=== PATIENT | female | born 1985 | race Caucasian/White ===

== ENCOUNTER → 2017-07-01 10:12 | Outpatient (CLI) | payer BC, SELFPAY ==
[2017-07-01 11:49] LABS: Hemoglobin 11.3 g/dl (12.0-15.0); Mean Corp Hgb Conc 34.2 g/gl (32-36); Mean Corpuscular Hgb 32.1 pg (27.0-32.0); Mean Corpuscular Volume 93.8 fL (81-99); Mean Platelet Vol. 9.9 fl (6.2-12.0); Platelet Count 250 K/mm3 (150-450); RBC Distribution Width CV 12.2 % (11.6-14.6); RBC Distribution Width SD 40.5 fl (35.1-43.9); Red Blood Count 3.52 M/mm3 (4.2-5.4); White Blood Count 9.2 K/mm3 (4.4-11.0)
[2017-07-01 11:50] LABS: Glucose Challenge Gest 1H 50g 100 mg/dL (70-140); Scan Indicated on CBC? Y/N NO
== END ==
PROVIDERS: Visit Provider Obstetrics & Gynecology
DX: Z34.82 Encounter for supervision of other normal pregnancy, second trimester (principal)
CPT/HCPCS: 36415; 82950; 85027; 86850

== ENCOUNTER 2017-07-22 18:21 | Emergency (ER) | payer BC, SELFPAY ==
[2017-07-22 18:22] VITALS: BP 117/67; PULSE 78; RESP 14; TEMP 36.7; O2SAT 98; BMI 28.0
[2017-07-22 19:00] LABS: Bacteria 0 SEEN /hpf (None Seen); Mucous, Urine 0 SEEN /hpf (<or=2+); Red Blood Cells-Urine 0 SEEN /hpf (0-5)
[2017-07-22 19:13] LABS: Color, Urine Straw (Yellow); Glucose, Dipstick Normal (Normal); Ketone-Dipstick Negative (Negative); Leukocyte Esterase-Dipstick 500 /ul (Negative); Nitrite-Dipstick Negative (Negative); Occult Blood-Urine Negative /ul (Negative); Protein-Dipstick Negative (Negative); Specific Gravity, Urine 1.005 (1.002-1.030); Urine Bilirubin Dipstick Negative (Negative); Urine Clarity Clear (Clear); Urine Urobilinogen Normal (Normal)
[2017-07-22 19:21] LABS: Squamous Epithelial Cells - UA 0-5 SEEN /hpf (5-10); White Blood Cells 10-25 SEEN /hpf (0-5)
--- NOTE | 2017-07-22 19:42 | ED.DCSUM_ITS ---
- ER Visit Summary Date of Service: 07/22/17 Chief Complaint: [Dysuria] History of Present Illness: The patient is a 32 F [presents to the emergency department complaint of dysuria that started this morning. Patient initially started with dysuria and then subsequently developed some discomfort in her right low back. Patient denies any fever. Patient denies vomiting. Patient is 30 weeks . Patient still feeling the baby move. She denies any vaginal bleeding. Patient denies any contractions.] Physical Examination: [HEENT-PERRLA, EOMI. Cranial nerves II through XII grossly intact. TMs clear. Mucous membranes moist. No adenopathy. Cardiovascular-regular rate and rhythm without murmur or ectopy Lungs-clear to auscultation, chest wall stable without crepitus or subcu emphysema Abdomen-normoactive bowel sounds, soft. Patient has some mild right lower quadrant tenderness to palpation as well as right CVA tenderness. There is no rebound, rigidity, or perineal signs. The abdomen is gravid. Extremities-intact ?4, normal range of motion, normal pulses, atraumatic] Test Results: [Urinalysis obtained showed 500 leukocyte esterase and 10-25 WBCs , no bacteria seen]. heart tones will be obtained. Emergency Department Course and Treatment: [Patient will start on Macrobid and a urine culture was ordered.] Treatment Plan: [Macrobid and Pyridium.] Disposition: [Discharged to home in stable condition.] Impression: [Urinary tract infection] This note was generated with [employer] dictation software. It may contain incorrect words, spelling, and punctuation that were not noted in review of the chart prior to signing ED Disposition - Plan for ED Patient: Chief Complaint: Flank Pain Referrals: Care Physician,No Primary [Primary Care Provider] -
--- NOTE | 2017-07-22 19:42 | ED.DEP ---
ED Disposition - Plan for ED Patient: Chief Complaint: Flank Pain Instructions: ED Kidney Infec Female Prescriptions: Nitrofurantoin Macrocrystals [Macrobid] 100 mg PO Q12 #14 cap Phenazopyridine HCl [Pyridium] 200 mg PO BID PRN PRN #10 tab PRN Reason: Pain Referrals: Care Physician,No Primary [Primary Care Provider] - Ann Maxwell MD [STAFF PHYSICIAN] - 3-5 Days
[2017-07-22] MEDS: Nitrofurantoin Macrocrystals 100 MG Capsule PO (20:01)
[2017-07-22 20:05] VITALS: BP 116/69; PULSE 74; PULSE 76; RESP 16; O2SAT 98
== END 2017-07-22 20:07 | disposition home or self-care (01) ==
LOC: ED 19:09
PROVIDERS: Emergency Provider Emergency Medicine
DX: O23.43 Unspecified infection of urinary tract in pregnancy, third trimester (principal); Z3A.30 30 weeks gestation of pregnancy
CPT/HCPCS: 81001; 87077; 87086; 87088; 87186; 99283

== ENCOUNTER 2017-09-22 00:23 | Inpatient (IN) | payer BC, SELFPAY ==
[2017-09-22] MEDS: Lactated Ringers 1,000 ML 50 ML IV (00:45)
[2017-09-22 01:00] LABS: Hematocrit 33.9 % (37-47); Hemoglobin 11.6 g/dl (12.0-15.0); Mean Corp Hgb Conc 34.2 g/gl (32-36); Mean Corpuscular Hgb 29.9 pg (27.0-32.0); Mean Corpuscular Volume 87.4 fL (81-99); Mean Platelet Vol. 9.6 fl (6.2-12.0); Platelet Count 264 K/mm3 (150-450); RBC Distribution Width CV 12.9 % (11.6-14.6); RBC Distribution Width SD 40.3 fl (35.1-43.9); Red Blood Count 3.88 M/mm3 (4.2-5.4); White Blood Count 12.7 K/mm3 (4.4-11.0)
[2017-09-22 01:01] LABS: Scan Indicated on CBC? Y/N NO
[2017-09-22 01:19] VITALS: BMI 29.3
[2017-09-22] MEDS: Oxytocin 30 units/NS 500 ml 30 UNITS/500 ML IV.SOLN 334 UNITS IV (01:51)
--- NOTE | 2017-09-22 02:10 | PCM.OB.VAG ---
Vaginal Delivery Maternal Presentation: Active Labor 39w4d ega in active labor Amniotic Membrane Rupture Type: Spontaneous Rupture of Membrane time: 0130 Amniotic Fluid Description: Clear Final RONNY: 09/25/17 Final RONNY Source: US <20 weeks Gestational age: 39 Weeks and 4 Days Date of Procedure: 09/22/17 Pre-Operative Diagnosis: Labor Post-Operative Diagnosis: same Surgery/ Procedure Performed: Spontaneous Vaginal Delivery Type of Anesthesia: None Description of Procedure: Admitted at 6 cm dilated and within one hour progressed to then pushed to deliver a live female without complication. Delivery was precipitous and attended by nursing staff. I delivered the placenta spontaneously intact with a centrally located 3VC. The uterus contracted well. Inspection revealed a small first degree posterior vaginal tear which was repaired with local lidocaine anesthesia and a single stitch of 2-0 Vicryl. Presentation: Vertex Placental Delivery Description: Spontaneous Placenta Disposition: [facility] Percentage of Placenta Abruption: 0 Cord Vessel Description: 3 Vessels Cord Entanglement: None Estimated Blood Loss: 200cc A gender: Female (1 minute): 8 (5 minute): 9 Episiotomy Description: None Laceration: Midline, Vaginal Extension/lac, 1st degree Medications given after delivery: IV Pitocin Complications: None
--- NOTE | 2017-09-22 02:17 | DCINST_ITS ---
Discharge Diet: No Restrictions Discharge Activity: Return to Normal Activity, May Drive, May Shower Return to work on:: 11/22/17 May shower in (days): 0 May resume sexual activity in: 4-6 weeks Call your doctor if your incision/area has: Sudden Increased Bleeding, Increased Pain/ Swelling, Foul Smelling Discharge Call your doctor if you observe: Fever of 101 or Higher, Inability to urinate, Inability to have a bowel movement, Using more than one pad per hour, Shortness of breath, Chest pain, Calf discomfort, Uncontrolled pain Cleanse incision/area with: Soap & Water Additional Instructions: If you experience any of the following, contact your healthcare provider. * Bleeding that soaks a pad every hour for 2 hours * Fever 100.4 or higher * Unrelieved incision or abdominal pain * Swelling, redness, discharge or bleeding from your incision or episiotomy site * Your incision begins to separate * Problems urinating (including inability to urinate or burning while urinating) . * Visual changes * Severe headache * Flu-like symptoms * Pain or redness in one of both of your breasts * Pain, warmth, tenderness or swelling in your legs, especially the calf area * Frequent nausea and vomiting * Symptoms of depression or anxiety If you experience any of the following, call 911 or go to the nearest Emergency Room. * Chest pain * Problems breathing * Seizure activity * Partial or complete paralysis of a body part, slurred speech, weakness or drooping of the face, or a sudden inability to walk or hold your balance Allergies/Adverse Reactions: Allergies No Known Allergies Allergy (Verified 09/22/17 01:20) Medications to take at Discharge Multi Tablet 1 dose PO DAILY 07/22/17 Ibuprofen 600 mg PO 4X/DAY #30 tab 09/22/17 Ranitidine [Zantac] 150 mg PO DAILY 09/22/17 The following prescriptions were given: Ibuprofen 600 mg PO 4X/DAY #30 tab Please Follow Up With: Ann Maxwell MD When: 6 weeks Primary Care Physician: Care Physician,No Primary [Primary Care Provider] - Test Results: Proposed Discharge Date: 09/24/17
[2017-09-22] MEDS: Oxytocin 30 units/NS 500 ml 30 UNITS/500 ML IV.SOLN 167 UNITS IV (02:21)
[2017-09-22] MEDS: Methylergonovine 0.2 MG/ML Ampul IM (03:11)
[2017-09-22 04:00] VITALS: BP 117/78; PULSE 73; RESP 16; TEMP 37.6; O2SAT 98
[2017-09-22] MEDS: Ibuprofen 600 MG Tablet PO ×3 (06:51→21:38)
[2017-09-22 08:35] VITALS: BP 104/54; PULSE 74; RESP 16; TEMP 36.8; O2SAT 98
[2017-09-22] MEDS: Famotidine 20 MG Tablet PO (09:53)
[2017-09-22 12:00] VITALS: BP 98/62; PULSE 69; RESP 18; TEMP 36.6; O2SAT 97
[2017-09-22] MEDS: Prenatal Vits Tablet 1 TABLET PO (13:07)
[2017-09-22 16:15] VITALS: BP 106/54; PULSE 67; TEMP 36.9; O2SAT 96
[2017-09-22 21:30] VITALS: BP 101/60; PULSE 81; RESP 16; TEMP 36.7; O2SAT 97
[2017-09-22 23:50] VITALS: BP 91/46; PULSE 67; RESP 18; TEMP 36.4; O2SAT 99
[2017-09-23 04:45] VITALS: BP 97/48; PULSE 77; RESP 18; TEMP 36.7; O2SAT 97
[2017-09-23 05:03] LABS: Hematocrit 30.4 % (37-47); Hemoglobin 10.1 g/dl (12.0-15.0); Mean Corp Hgb Conc 33.2 g/gl (32-36); Mean Corpuscular Hgb 29.7 pg (27.0-32.0); Mean Corpuscular Volume 89.4 fL (81-99); Mean Platelet Vol. 9.4 fl (6.2-12.0); Platelet Count 224 K/mm3 (150-450); RBC Distribution Width CV 13.3 % (11.6-14.6); RBC Distribution Width SD 41.5 fl (35.1-43.9); White Blood Count 9.9 K/mm3 (4.4-11.0)
[2017-09-23 05:04] LABS: Scan Indicated on CBC? Y/N NO
[2017-09-23] MEDS: Ibuprofen 600 MG Tablet PO ×2 (06:26→21:38)
--- NOTE | 2017-09-23 07:58 | PCM.PN.OB ---
Subjective: No issues overnight. She feels well. She is . Infant is latching well. Denies significant pain or heavy lochia. Objective: AVSS - Physical Exam General: Alert, Oriented x3, Cooperative, No apparent distress HEENT: Atraumatic Lungs: Clear to auscultation, Normal air movement Cardiovascular: Regular rate, Regular Rhythm Abdomen: Bowel Sounds Present, Non Tender, Non-Distended Extremities: No edema, No Calf Tenderness Neurological: Neuro grossly intact Psych/Mental Status: Normal Affect, Appropriate, Alert and oriented to time, place, person, mood and affect Vital Signs Temp Pulse Resp BP Pulse Ox 98.0 F 77 18 97/48 L 97 09/23/17 04:45 09/23/17 04:45 09/23/17 04:45 09/23/17 04:45 09/23/17 04:45 Oxygen Delivery Method Room Air Weight: 72.8 kg Body Mass Index (BMI) 29.3 Intake and Output for Last 24 Hours 09/21/17 09/22/17 09/23/17 23:59 23:59 23:59 Intake Total 947 / 947 Output Total 200 / 200 Balance 747 / 747 Laboratory Tests Past 24 Hrs 09/23/17 04:50 WBC 9.9 RBC 3.40 L Hgb 10.1 L Hct 30.4 L MCV 89.4 MCH 29.7 MCHC 33.2 RDW 13.3 RDW Differential 41.5 Plt Count 224 MPV 9.4 Medical Necessity - Tobacco Use Smoking Status: Former smoker Assessment/Plan 32yo PPD#1 s/p precipitous doing well. Rh negative, infant also Rh negative - no Rhogam inidicated Routine care Anticipate discharge tomorrow
[2017-09-23 08:00] VITALS: BP 91/50; PULSE 74; RESP 18; TEMP 36.9
--- NOTE | 2017-09-23 12:40 | CASEMGMT ---
Social Work Assessment Labor and Delivery Unit Date of Referral: 09/22/2017 Time of Referral: 1630 Referred By: verbal notification by nursing staff, Nadeem Yepez RN. Date of Intervention: 09/23/2017 Time of Intervention: 1240 Reason for Referral: Support and resources; being tested for Downs syndrome History obtained from: Medical record, patient/mother of baby (MOB) and father of baby (FOB). Household composition: MOB Lexus Frazier, FOB Jimbo Frazier and oldest child, Tacho Frazier. Selby, Joanna, will be living in this home as well. No reported or identified safety concerns in the home. Patient's parent/guardian status: MOB and FOB in fall but have been together for 12 years. MOB and FOB now share two children together. Tacho was born 07[birth year]17-2014 and Joanna on 09-22-17. No reported or identified safety concerns in relationship with FOB. Medical History: MOB is G2, P1 to 2 after delivering Joanna. MOB with care starting at 10 weeks gestation. Medical record indicates baby with bilateral ventriculomegaly with right side more prominent. Joanna born at 39 weeks, weighed 7 pounds 15 ounces, with Apgars of 8 and 9. Medical record indicated that medical and nursing staff observed features on baby warranting further testing, concern for trisomy 21/Downs syndrome indicated. Educational Status: MOB graduated high school and went to trade school. ANUSHA is able to read, write, and denies any learning comprehension issues. Financial Status: MOB works fulltime, Tuesday through Tuesday, in the office at [employer]. FOB works at [employer] from 1000am to 600pm. Supplies: MOB and FOB report to have needed supplies to care for baby, including car seat and safe sleep space. MOB plans to breast feed infant. Childcare/Caregiver(s): MOB while on maternity leave. MOBs mom helps out once a week with Tacho, Tacho will be going to preschool a couple of days next year. MOB uncertain as to what care needs for baby will be when MOB is ready to return to work. Transportation: No reported issues, both parents drive. Programs/Agencies Involved: Plan to use Dr. Peters for pediatric needs. No agency involvement at this time, family has not needed to use WIC or any other supportive services. At this time, MOB and FOB open to [facility] referral for early intervention. Children Services/Legal Issues: No reported issues or past involvement. Behavioral Health Issues: MOB denies any history of depression, anxiety, mood or anxiety disorder, no history of any suicidal thoughts, or harm to others. [facility] record indicates MOB with an Ovid depression screen of 0 during this . MOB denies any substance use or abuse, no tobacco use. MOB had negative drug screen on 03-03-17. Family/Social Stressors: MOB and FOB having adjustment issues, at this time baby Joanna has had bookwork sent to confirm any developmental issues for this baby. MOB and FOB both report concern that baby may have Downs syndrome. This is a shock to the parents, as parents has no knowledge of this prior to delivery. MOB and FOB now adjusting to this possibility, as well as worries about what the future may hold in every aspect of their lives. While alone, MOB also voiced some guilt that she is the one who was pushing for a second child, and while FOB agreed, the FOB was reportedly content with having one child. Support Systems: MOB reports to talk openly with FOB, as well as has support from MOBs mom and sister who are local. ASSESSMENT: Talked with MOB and FOB together, with young son Tacho in the room. FOB left with Tacho at one point so did have some alone time with MOB. Tacho was well behaved during this writers conversation with both parents. Both MOB and FOB talked about their feelings, thoughts, and some worries regarding the news of baby possibly having Downs syndrome or other developmental delay. MOB more talkative than FOB, but FOB gave input about own feelings, and also provided supportive comments to MOB, such as encouraging MOB to tell this telegraphic typewriter operator chief how MOB really feels. MOB more talkative, and FOB quiet appearing subdued though participating in conversation. Both MOB and FOB cried at times, appropriately when talking about thoughts and feelings. Parents seem to be having a fear of the unknown and to be grieving what had anticipated for their familys future. Normalized thoughts, feelings, emotions, and encouraged parents to be patient with themselves, taking time to adjust, not making big life changes (such as MOB talking about having to quit job), and continuing to be open with each other about how each is doing with this life altering news. MOB did express that does not yet feel a mccartney with baby, feeling as though baby is not mine, though MOB held baby the entirety of social work visit, holding baby, rocking baby, kissing babys head and talking gently to baby. MOB reports belieft that a mccartney will come, and does acknowledge that trying to adjust to new information being given. MOB reports receptivity to having referrals for early intervention for the baby, and open to information social work has to offer. Much supportive listening, reflection, normalization, validation, as well as touching on stages of grief provided to this family. PLAN: Follow up later today with some resources for this family. -JOHANA Garcia, BANKING AND FINANCE INSTRUCTOR
[2017-09-23] MEDS: Senna/Docusate Sodium 1 Tablet PO (13:17)
[2017-09-23] MEDS: Prenatal Vits Tablet 1 TABLET PO (13:17)
[2017-09-23 14:30] VITALS: BP 108/42; PULSE 82; RESP 24; TEMP 36.8
--- NOTE | 2017-09-23 15:30 | CASEMGMT ---
Social Work Labor and Delivery Unit Summary: Follow up to previous social work intervention today, providing patient/mother of baby (MOB) and family with some resources which may be helpful down the road. MOB, father of baby (FOB), older son Tacho, and MOBs mother in room when social insurance analyst returned to provide information. Assessment: Baby sleeping in the bedside crib when social insurance analyst entered the room. MOB in bed, and rest of family on couch or chairs in the room. MOB calm and smiling, affect constricted, though did start to cry when social insurance analyst offered resources, coping skills, and then a packet of information specific to Downs Syndrome. MOB denies any new questions or concerns at this point, and expressed appreciation for information provided today. Intervention: Provided [facility] Resource guide, a comprehensive guide to services in [facility]. Information on shaken baby/tips to soothe baby, safe sleeping, and Help Me Grow. Information on depression and anxiety/online resources/supports/tips on self-care. Packet of information on local Downs Syndrome Supports including the [place] [employer] Downs including a new parent resource booklet, National Downs Syndrome Society including information on what to expect/normalizing thoughts and feelings in adjustment period, and articles on other parents stories after finding out their children had Downs Syndrome. Downs Syndrome information placed in a manila envelope for MOB and FOB to look at when ready. Provided some coping handouts on ground exercises and calm breathing techniques so as to to help aide MOB being able to stay in the moment. Encouraged parents to remember that counseling can be a great tool to provide support and coping in times of stress and adjustment. Plan: MOB and baby to home when ready for discharge. [facility] referral being made. Resources given. MOB has this writers contact information should MOB think of questions after discharge. No other services requested or indicated. -JOHANA Garcia, REHAB DIRECTOR
[2017-09-23 19:50] VITALS: BP 113/53; PULSE 85; RESP 17; TEMP 36.8; O2SAT 99
[2017-09-24 01:35] VITALS: BP 105/54; PULSE 70; RESP 17; TEMP 37.2
--- NOTE | 2017-09-24 06:41 | PCM.PN.OB ---
Subjective: Yesterday more challenging with . Continues to work on feeding. Lexus indicates she is trying to come to terms with infant likely diagnosis of Down Syndrome. Otherwise physically doing well, denies heavy lochia. Objective: AVSS - Physical Exam General: Alert, Oriented x3, Cooperative, No apparent distress HEENT: Atraumatic Lungs: Normal air movement Cardiovascular: Regular rate, Regular Rhythm Abdomen: Soft, Non Tender, Non-Distended, - - Fundus firm and nontender Extremities: No edema, No Calf Tenderness Neurological: Neuro grossly intact Psych/Mental Status: Normal Affect, Appropriate, Alert and oriented to time, place, person, mood and affect Vital Signs Temp Pulse Resp BP Pulse Ox 98.9 F 70 17 105/54 L 99 09/24/17 01:35 09/24/17 01:35 09/24/17 01:35 09/24/17 01:35 09/23/17 19:50 Oxygen Delivery Method Room Air Weight: 72.8 kg Body Mass Index (BMI) 29.3 Intake and Output for Last 24 Hours 09/22/17 09/23/17 09/24/17 23:59 23:59 23:59 Intake Total 947 / 947 Output Total 200 / 200 Balance 747 / 747 Medical Necessity - Tobacco Use Smoking Status: Former smoker Assessment/Plan 32yo PPD#2 s/p precipitous doing well. Rh negative, infant also Rh negative - no Rhogam inidicated Infant with Down facies - genetic studies pending, f/u per Peds Routine care Anticipate discharge today, possible to hotel if phototherapy required
[2017-09-24 08:29] VITALS: BP 99/52; PULSE 75; RESP 16; TEMP 37.1; O2SAT 95
[2017-09-24] MEDS: Prenatal Vits Tablet 1 TABLET PO (11:01)
[2017-09-24 12:45] VITALS: BP 112/52; PULSE 92; RESP 18; TEMP 37.2; O2SAT 98
--- NOTE | 2017-09-26 12:04 | CASEMGMT ---
Social Work Note Labor and Delivery Unit Help Me Grow referral submitted via the [facility]'s secure web based referral form, per the stated consent of patient/mother of baby (MOB). No other services requested or indicated. -SCOTT Garcia, ELASTIC CUTTER
== END 2017-09-24 13:15 | disposition home or self-care (01) | DRG 774 ==
PROVIDERS: Admitting Provider Obstetrics & Gynecology; Visit Provider Obstetrics & Gynecology
DX: O71.4 Obstetric high vaginal laceration alone (principal); O98.82 Other maternal infectious and parasitic diseases complicating childbirth; B95.1 Streptococcus, group B, as the cause of diseases classified elsewhere; Z3A.39 39 weeks gestation of pregnancy; Z37.0 Single live birth; Z87.891 Personal history of nicotine dependence
CPT/HCPCS: 59025; 59050; 85027; 86850; 86900; 86901; 99218; J7120; G0378

== ENCOUNTER 2019-07-28 15:35 | Emergency (ER) | payer BC, SELFPAY ==
[2019-07-28 15:36] VITALS: BP 117/78; PULSE 80; RESP 16; TEMP 36.2; O2SAT 99; BMI 22.8
--- NOTE | 2019-07-28 15:50 | CT_ITS ---
STUDY: CT ABDOMEN AND PELVIS WITHOUT CONTRAST REASON FOR EXAM: Female, 34 years old. LEFT FLANK PAIN RADIATION DOSAGE (If Supplied By Facility): CTDIvol = ( 6.13 ) mGy, DLP = ( 264.88 ) mGycm TECHNIQUE: Transaxial images were obtained from the dome of the diaphragm to the symphysis pubis without oral contrast, and without intravenous contrast. Sagittal and coronal images were reconstructed. Individualized dose optimization techniques were used for this CT. COMPARISON: None. FINDINGS: The visualized lung bases are unremarkable. The visualized portions of the heart are within normal limits. Normal liver. Normal gallbladder and extrahepatic biliary system. Normal spleen. Normal pancreas. Normal bilateral adrenal glands. Normal right kidney. There is a mild left hydronephrosis. There is a nonobstructing 3 mm left renal calculus. There is an obstructing calculus in the distal left ureter at the level of the UVJ measuring 4.4 mm. Normal visualized stomach. Normal small intestine. Normal colon. There is non-visualization of the appendix. Normal abdominal aorta. Normal inferior vena cava. Normal retroperitoneum. Normal urinary bladder. The uterus and adnexal structures are unremarkable. There is a small umbilical hernia containing fat. Normal osseous structures. CT/Abdomen/Pelvis without Cont IMPRESSION: Obstructing 4.4 mm calculus in the distal left ureter at the level of the UVJ with mild proximal left hydroureter and hydronephrosis. There is an additional nonobstructing 3 mm left renal calculus. Small fat-containing helical hernia. Electronically Signed: Nikolai Chahal MD at 17:00 EDT , Service support ,
[2019-07-28] MEDS: 0.9% Normal Saline 1,000 ML 1000 ML IV (16:02)
[2019-07-28 16:10] LABS: Bacteria 0 SEEN /hpf (None Seen); Mucous, Urine 0 SEEN /hpf (<or=2+); White Blood Cells 0 SEEN /hpf (0-5)
[2019-07-28 16:13] LABS: Absolute Lymphocyte Count 1.46 X10^3/uL (0.83-4.51); Absolute Neutrophil Count 4.7 X10^3/uL (2.0-7.7); Basophil# 0.03 X10^3/uL; Basophil% 0.4 % (0-1); Eosinophil# 0.08 X10^3/uL; Eosinophils% 1.2 % (0-5); Hematocrit 36.6 % (37-47); Hemoglobin 12.3 g/dL (12.0-15.0); Lymphocyte # 1.46 X10^3/ul (4.0); Lymphocyte % 21.3 % (19-41); Mean Corp Hgb Conc 33.6 g/dL (32-36); Mean Corpuscular Hgb 30.3 pg (27.0-32.0); Mean Corpuscular Volume 90.1 fL (81-99); Mean Platelet Vol. 9.2 fl (6.2-12.0); Monocyte# 0.61 X10^3/uL; Monocyte% 8.9 % (0-10); NRBC Flagged by Analyzer 0 % (0-5); Neutrophil # 4.65 X10^3/uL (2.7-7.7); Neutrophil % 67.8 % (47-70); Platelet Count 209 K/mm3 (150-450); RBC Distribution Width CV 11.9 % (11.6-14.6); RBC Distribution Width SD 38.5 fl (35.1-43.9); Red Blood Count 4.06 M/mm3 (4.2-5.4); White Blood Count 6.9 K/mm3 (4.4-11.0)
[2019-07-28 16:16] LABS: Color, Urine Yellow (Yellow); Glucose, Dipstick Normal (Normal); Ketone-Dipstick 5 mg/dl (Negative); Leukocyte Esterase-Dipstick Negative /ul (Negative); Nitrite-Dipstick Negative (Negative); Occult Blood-Urine 250 /ul (Negative); Protein-Dipstick 30 mg/dl (Negative); Specific Gravity, Urine 1.025 (1.002-1.030); Urine Bilirubin Dipstick Negative (Negative); Urine Clarity Sl. Cloudy (Clear); Urine Urobilinogen Normal (Normal)
[2019-07-28 16:17] LABS: Internal QC Validated? YES +Cl - CLEAR BKGD; Pregnancy, Urine Negative Negative
[2019-07-28 16:23] LABS: Red Blood Cells-Urine 50-100 SEEN /hpf (0-5); Squamous Epithelial Cells - UA 0-5 SEEN /hpf (5-10)
[2019-07-28 16:29] LABS: ALB/GLOB Ratio 1.2 RATIO (0.9-2.4); AST(SGOT) 16 U/L (15-37); Alanine Aminotransfer ALT/SGPT 23 U/L (13-56); Alkaline Phosphatase 70 U/L (45-117); Anion Gap 7 (5-15); BUN 18 mg/dL (7-18); Calcium,Total 8.3 mg/dL (8.5-10.1); Chloride 106 mmol/L (98-107); Creatinine, Serum 0.78 mg/dL (0.55-1.02); EST Glomerular Filtration Rate 91 mL/min (>60); Est Glom Filt Rate - Afr Amer 110 mL/min (>60); Estimated Creatinine Clearance 81.89 ml/min; Globulin 3.3 g/dL (2.2-4.2); Glucose 102 mg/dL (74-106); Lipase 119 U/L (73-393); Potassium 3.8 mmol/L (3.5-5.1); Protein, Total 7.3 g/dL (6.4-8.2); Sodium Level 140 mmol/L (136-145)
[2019-07-28] MEDS: Ketorolac 15 MG/ML Vial IV (16:31)
--- NOTE | 2019-07-28 17:32 | ED.VISSUMM ---
- ER Visit Summary Date of Service: 07/28/19 Chief Complaint: Left flank pain History of Present Illness: The patient is a 34 F with left flank pain that started suddenly this morning. Associate with urinary frequency, diarrhea, and nausea. Physical Examination: Afebrile and vital signs unremarkable. Heart regular rate. No respiratory distress. Skin appears normal. Test Results: CBC, BMP unremarkable. Urinalysis showed blood. test negative. CT showed a 4.4 mm left distal ureter stone with obstruction. Emergency Department Course and Treatment: Patient initially declined pain meds. She was treated with IV fluids. She had recurrence of her pain and was treated with Toradol. CT showed a stone in the left distal ureter. She will likely pass this spontaneously. I gave her urine strainers. She was advised that she may have complications or difficulty passing the stone. She should return at anytime for any problems. Otherwise follow-up with Dr. Wang. Prescription for Percocet and Zofran as needed. Stay hydrated. Use anti-inflammatories. Treatment Plan: As above Disposition: Discharge Impression: Ureteral colic This note was generated with [employer] dictation software. It may contain incorrect words, spelling, and punctuation that were not noted in review of the chart prior to signing ED Disposition - Plan for ED Patient: Referrals: Care Physician,No Primary [Primary Care Provider] -
--- NOTE | 2019-07-28 17:33 | ED.DEP ---
ED Disposition - Plan for ED Patient: Instructions: ED Renal Stone w Colic Prescriptions: Oxycodone HCl/Acetaminophen [Percocet 5/325] 1 tab PO Q6H PRN PRN 3 Days #12 tab PRN Reason: Pain Prescription Printed Ondansetron [Zofran Odt] 4 mg PO Q8H PRN PRN #10 tab PRN Reason: Nausea Prescription Printed Referrals: Pablo Wang MD [STAFF PHYSICIAN] -
[2019-07-28 17:44] VITALS: BP 112/69; PULSE 64; RESP 18; O2SAT 99
== END 2019-07-28 17:45 | disposition home or self-care (01) ==
PROVIDERS: Emergency Provider Emergency Medicine
DX: N23 Unspecified renal colic (principal)
CPT/HCPCS: 74176; 80053; 81001; 81025; 83690; 85025; 96361; 96365; 99283; J7030; A4216

== ENCOUNTER → 2019-11-02 14:09 | Outpatient (CLI) | payer BC, SELFPAY ==
[2019-11-06 20:55] LABS: HPV APTIMA, High Risk Negative (Negative)
== END ==
PROVIDERS: Referring Provider Obstetrics & Gynecology; Visit Provider Obstetrics & Gynecology
DX: Z12.4 Encounter for screening for malignant neoplasm of cervix (principal)
CPT/HCPCS: 87624; 88175; G0145